=== PATIENT | male | born 1990 | race Asian ===

== ENCOUNTER 2018-04-25 11:23 | Emergency (ER) | payer SELFPAY ==
[~2018-04-25] VITALS: Ht 170.2 cm; Wt 76.4 kg
[2018-04-25 11:28] VITALS: BP 142/76; TEMP 97.5
[2018-04-25] MEDS ORDERED: FLEXERIL 1010 MG/TAB PO (12:18)
[2018-04-25] MEDS ORDERED: MOTRIN 800800 MG/TAB PO (12:18)
[2018-04-25 12:39] VITALS: PULSE 69
== END 2018-04-25 12:39 | disposition home or self-care (01) ==
LOC: COL.ER 11:23
DX: S39.012A Strain of muscle, fascia and tendon of lower back, initial encounter (principal); X50.0XXA Overexertion from strenuous movement or load, initial encounter; Y92.59 Other trade areas as the place of occurrence of the external cause